=== PATIENT | female | born 1945 | race Caucasian/White ===

== ENCOUNTER → 2016-11-18 | Outpatient (CLI) | payer MEDICARE ==
[~2016-11-18] MED LIST: CRESTOR20 MG PO; DIGOX125 MCG PO; FORTAMET500 MG PO; LASIX40 MG PO; METOPROLOL TART25 MG PO; PRINIVIL20 MG PO; TOUJEO SOLOSTAR SC
[2016-11-18 13:04] LABS: HEMOGLOBIN 14.7 gm/dl (12.3-15.3); RED BLOOD COUNT 4.95 M/UL (4.00-5.10); WHITE BLOOD COUNT 8.5 K/UL (4.5-11.0)
[2016-11-18 13:17] LABS: BUN/CREATININE RATIO 33 (0-10)
== END ==
LOC: LAB 12:03
PROVIDERS: Internal Medicine Cardiovascular Disease
DX: R00.2 Palpitations (principal); I47.1 Supraventricular tachycardia; R55 Syncope and collapse
CPT/HCPCS: 36415; 80048; 85025

== ENCOUNTER → 2016-11-19 | Outpatient (CLI) | payer MEDICARE | LOC: HEART 5 09:54 | DX: R55 Syncope and collapse (principal); I42.0 Dilated cardiomyopathy; I47.1 Supraventricular tachycardia; I50.22 Chronic systolic (congestive) heart failure; I51.7 Cardiomegaly; I07.1 Rheumatic tricuspid insufficiency | CPT/HCPCS: 93306 ==

== ENCOUNTER 2016-11-24 09:08 | Outpatient (CLI) | payer MEDICARE ==
[~2016-11-24] VITALS: Ht 157.5 cm; Wt 57.2 kg
[2016-11-24] MEDS ORDERED: CRESTOR20 MG PO (09:46)
[2016-11-24] MEDS ORDERED: TOUJEO SOLOSTAR SC (09:46)
[2016-11-24] MEDS ORDERED: DIGOX125 MCG PO (09:47)
[2016-11-24] MEDS ORDERED: LASIX40 MG PO (09:47)
[2016-11-24] MEDS ORDERED: FORTAMET500 MG PO (09:48)
[2016-11-24] MEDS ORDERED: PRINIVIL20 MG PO (09:48)
[2016-11-24] MEDS ORDERED: METOPROLOL TART25 MG PO (09:49)
== END 2016-11-25 09:35 | disposition home or self-care (01) ==
LOC: CATH 09:08 → PROG CARE 17:11 → CATH 11-25 09:35
DX: I47.1 Supraventricular tachycardia (principal); I42.0 Dilated cardiomyopathy; I11.0 Hypertensive heart disease with heart failure; I50.22 Chronic systolic (congestive) heart failure; E78.5 Hyperlipidemia, unspecified; R00.2 Palpitations; R55 Syncope and collapse; Z88.0 Allergy status to penicillin; Z88.8 Allergy status to other drugs, medicaments and biological substances; Z91.09 Other allergy status, other than to drugs and biological substances; Z90.5 Acquired absence of kidney; I25.119 Atherosclerotic heart disease of native coronary artery with unspecified angina pectoris; Z79.84 Long term (current) use of oral hypoglycemic drugs; Z79.899 Other long term (current) drug therapy
CPT/HCPCS: 82962; 93005; 93609; 93621; 93623; C1730; C1733; C1766; J1644; J1815; J2250; J3010; J7040; J7050